=== PATIENT | male | born 1980 | race Caucasian/White ===

== ENCOUNTER 2017-01-03 11:08 | Emergency (ER) | payer OTHER ==
[~2017-01-03] VITALS: Ht 177.8 cm; Wt 70.3 kg
[2017-01-03] MEDS ORDERED: ELIMITE5% T (11:44)
== END 2017-01-03 11:57 | disposition home or self-care (01) ==
LOC: ED 11:08
DX: B86 Scabies (principal); L25.9 Unspecified contact dermatitis, unspecified cause

== ENCOUNTER → 2025-05-06 | Day surgery (SDC) | payer OTHER ==
[~2025-05-06] VITALS: Ht 177.8 cm; Wt 61.2 kg
[~2025-05-06] MED LIST: ACETAMINOPHEN 50 ML IV ONE; ELIMITE5% T; Lactated Ringer's Solution 500 ML IV ONE; Lidocaine Hydrochloride 2% 5 ML SDV IV ONE; Lidocaine Hydrochloride 30 ML VIAL ONE; PROPOFOL 200 MG/20 ML VIAL IV ONE; VITAMIN C1000 M5 PO; ceFAZolin sodium/sodium chlor 10 ML IV ONE; hydrALAZINE hydrochloride 20 MG/ML VIAL IV ONE
[2025-05-06 11:42] VITALS: BP 143/93
[2025-05-06 11:57] VITALS: BP 133/94
[2025-05-06 12:12] VITALS: BP 143/92
== END | disposition home or self-care (01) ==
LOC: SDC 05-04 09:30
PROVIDERS: ATTEND Orthopaedic Surgery
DX: M65.341 Trigger finger, right ring finger (principal); I10 Essential (primary) hypertension; E78.5 Hyperlipidemia, unspecified; M10.9 Gout, unspecified; G51.0 Bell's palsy; Z98.890 Other specified postprocedural states; Z79.899 Other long term (current) drug therapy; Z83.3 Family history of diabetes mellitus; Z84.89 Family history of other specified conditions